=== PATIENT | male | born 1965 | race Caucasian/White ===

== ENCOUNTER 2018-09-23 08:56 | Day surgery (SDC) | payer BC ==
[~2018-09-23] VITALS: Ht 160 cm; Wt 67.1 kg
[~2018-09-23 08:56] MED LIST: ASPI325T25 PO; ATOR80TA59 PO; LR 1,000 ML IV SCH; METO50TA7 PO; NITR0.4S14; OMEP20CA3 PO; VITA500T PO
[2018-09-23] MEDS ORDERED: GLYCOPYRROLATE INJ 0.2 MG/ML 2 ML VIAL As Ordered ONE (10:11)
[2018-09-23] MEDS ORDERED: dexameTHASONE 4 MG/ML 1ML VIAL (J1100) As Ordered ONE (10:11)
[2018-09-23] MEDS ORDERED: ROCURONIUM BROMIDE 50 MG/5 ML VIAL As Ordered ONE (10:11)
[2018-09-23] MEDS ORDERED: MIDAZOLAM INJ 2 MG/2 ML VIAL (J2250) As Ordered ONE (10:11)
[2018-09-23] MEDS ORDERED: NEOSTIGMINE 10 MG/10 ML VIAL (J2710) As Ordered ONE (10:11)
[2018-09-23] MEDS ORDERED: LIDOCAINE 2% INJ 100 MG/5 ML SDV (FOR ANES.) As Ordered ONE (10:11)
[2018-09-23] MEDS ORDERED: fentaNYL 100 MCG/2 ML INJECTION (J3010) As Ordered ONE ×2 (10:11→12:05)
[2018-09-23] MEDS ORDERED: PROPOFOL 200 MG/20 ML VIAL As Ordered ONE (10:11)
[2018-09-23] MEDS ORDERED: ONDANSETRON 4MG/2ML VIAL (J2405) As Ordered ONE (10:11)
[2018-09-23] MEDS ORDERED: NORCOTAB PO (10:21)
[2018-09-23] MEDS ORDERED: BUPIVACAINE HCL 0.25% 30 ML VIAL As Ordered ONE (10:46)
[2018-09-23] MEDS ORDERED: BUPIVACAINE LIPOSOME/PF 1.3% 20ML VIAL (13.3MG/ML)(EXPAREL)(C9290 PER1MG) As Ordered ONE (12:23)
[2018-09-23] MEDS ORDERED: ONDANSETRON 4MG/2ML VIAL (J2405) IV PRN (14:15)
[2018-09-23] MEDS ORDERED: fentaNYL 100 MCG/2 ML INJECTION (J3010) IV PRN (14:15)
[2018-09-23] MEDS ORDERED: LR 1,000 ML IV SCH (14:15)
[2018-09-23] MEDS ORDERED: PERCOCET 5MG/325MG TAB PO PRN (14:15)
[2018-09-23] MEDS ORDERED: HYDROMORPHONE HCL 0.5 MG/ 0.5 ML SYRINGE (J1170 PER 1) IV PRN (14:15)
[2018-09-23] MEDS ORDERED: ACETAMINOPHEN TAB 650MG DOSE (2X325MG) PO PRN (14:30)
[2018-09-23] MEDS ORDERED: NORCO, ANEXSIA 5/325MG TABLET (HYDROcodone/ACETAMINOPHEN) PO PRN (14:30)
[2018-09-23 15:30] VITALS: BP 124/70
[2018-09-23 15:39] LABS: HEPATITIS B SURFACE ANTIGEN NEGATIVE (NEGATIVE)
[2018-09-23 15:59] LABS: HEP C VIRUS AB INDEX SOURCE PT 0.1 INDEX (0.0-0.8)
--- NOTE | 2018-09-24 10:58 | RO ---
DATE OF PROCEDURE: 09/23/2018 PREOPERATIVE DIAGNOSES: 1. Left inguinal hernia. 2. Right hip subcutaneous mass. POSTOPERATIVE DIAGNOSES: 1. Indirect left inguinal hernia. 2. Right subcutaneous mass of the hip, probable lipoma. PROCEDURES PERFORMED: 1. Left inguinal herniorrhaphy with Ultrapro mesh. 2. Excision of right hip subcutaneous mass 8 cm in diameter. SURGEON: Dr. Ludwig Crawford YARD DRIVER: ANESTHESIA: General. INDICATIONS FOR PROCEDURE: Patient is a 53-year-old man who had recently noted a lump in the left inguinal area. This followed shortly after having a cardiac catheterization, which led to a coronary artery bypass grafting. On physical exam, he was found to have a reducible incomplete left inguinal hernia. He also pointed out a subcutaneous mass on the right anterolateral hip area suggestive of a lipoma. He is now for left inguinal herniorrhaphy and excision of the mass. DESCRIPTION OF PROCEDURE: The patient was brought to the operating room and placed supine on the operating table. He was placed under general endotracheal anesthesia. The patient's lower abdomen, groins and genitalia and the right anterolateral hip area were all prepped and draped sterilely. Attention was first turned to the left inguinal hernia. An approximately 8 cm left lower quadrant oblique incision was made over the course of the inguinal canal. This was deepened through the subcutaneous tissues using the cautery. Hemostasis was ensured with the cautery. The external oblique was identified, and this was opened in the direction of its fibers into the external ring. The spermatic cord was found to be somewhat dilated. With dissection, a moderately large indirect inguinal hernia sac was identified. This was from the other cord structures and dissected up into the internal ring. The sac was opened and contained some omentum which was reduced into the abdomen. The sac was then twisted and suture ligated at its neck with a #0 Vicryl. The sac was excised and sent as a permanent specimen. The spermatic cord was then elevated at the pubic tubercle. Some of the cremaster fibers were divided. A 6 x 11 cm Ultrapro mesh was selected. This was reference code UMS3 and lot number [id number]. This was trimmed to fit the inguinal floor and split laterally to fit about the spermatic cord. This was sutured at the pubic tubercle with a #3-0 Prolene, which was then carried along the lateral border of the mesh suturing this to the shelving edge of the inguinal ligament. The medial portion of the mesh was tacked down to the underlying internal oblique muscle and fascia using interrupted simple sutures of #3-0 Vicryl. The tails of the mesh were overlapped lateral to the spermatic cord and sutured together to narrow the internal ring appropriately. This appeared to give a nice reinforcement of the inguinal floor. The external oblique aponeurosis was closed with a running suture of #0 Vicryl. A mixture of 20 mL of Exparel with 20 mL of 0.25% Marcaine was then prepared. Approximately 25 mL at this was infiltrated around the left inguinal hernia. The subcutaneous tissues were approximated with some buried #3-0 chromic, and the skin edges were approximated with a running subcuticular #4-0 Vicryl. Attention was then turned to the right hip mass. He had a protruding nodule of what appeared to fibrofatty tissue, about 2 cm in diameter, which connected to a somewhat serpiginous obliquely oriented subcutaneous mass extending superiorly and laterally. An oblique elliptical incision was made to incorporate the protruding mass and extending up along the course of the underlying subcutaneous mass. The tissues were opened with the cautery and with sharp dissection. A lobulated mass of fibrofatty tissue was identified. This was dissected free using a combination of dissection, but primarily with the cautery to ensure hemostasis. The skin superiorly was elevated with retractors, and the mass was dissected free from beneath the mass. This was removed and was 8 cm in maximum diameter. The lobulated tissue appeared to be intact. This was sent for permanent pathology. After ensuring adequate hemostasis, the skin edges were undermined slightly to allow better apposition. The remaining 15 mL of Exparel were infiltrated about the wound. The subcutaneous tissues were approximated with #3-0 Vicryl. The skin edges were approximated with a running subcuticular #4-0 Vicryl. Steri-Strips were applied to both incisions followed by sterile dressings. The patient tolerated the procedure well without apparent complication. He was awakened in the operating room, extubated and moved to the recovery room in stable condition.
== END 2018-09-23 15:30 | disposition home or self-care (01) ==
LOC: M SDC 08:56
PROVIDERS: ATTEND Surgery
DX: K40.90 Unilateral inguinal hernia, without obstruction or gangrene, not specified as recurrent (principal); D17.23 Benign lipomatous neoplasm of skin and subcutaneous tissue of right leg
CPT/HCPCS: 27043; 36415; 49505; 86803; 87340; 87389; 88302; 88307; C1781; C9290; J1100; J2250; J2405; J2710; J3010

== ENCOUNTER → 2022-10-11 | Outpatient (CLI) | payer OTHER ==
[~2022-10-11] MED LIST changes: +ASPI-255 PO; -ASPI325T25 PO; +BAYE81TA10 PO; +HYDR-3715 PO; -LR 1,000 ML IV SCH; +OMEP1CAP73 PO; -OMEP20CA3 PO; +REPA140I2 SC; +VITA-243 PO; -VITA500T PO
== END ==
LOC: M LABSMTC 11:56
PROVIDERS: ATTEND Anesthesiology
DX: Z01.818 Encounter for other preprocedural examination (principal); Z11.52 Encounter for screening for COVID-19

== ENCOUNTER 2022-10-16 09:18 | Day surgery (SDC) | payer OTHER ==
[~2022-10-16] VITALS: Ht 160 cm; Wt 62.1 kg
[~2022-10-16 09:18] MED LIST changes: +ceFAZolin SOD 2 GM in IV 1 EA IV ONE
[2022-10-16] MEDS ORDERED: LR 1,000 ML IV SCH ×2 (09:55→13:30)
[2022-10-16] MEDS ORDERED: propofoL 200 MG/20 ML VIAL As Ordered ONE (10:49)
[2022-10-16] MEDS ORDERED: ROCURONIUM BROMIDE 50MG/5ML VIAL As Ordered ONE (10:49)
[2022-10-16] MEDS ORDERED: MIDAZOLAM INJ 2MG/2ML VIAL As Ordered ONE (10:49)
[2022-10-16] MEDS ORDERED: fentaNYL 100 MCG/2 ML INJECTION As Ordered ONE ×2 (10:49→12:50)
[2022-10-16] MEDS ORDERED: ONDANSETRON 4MG 2ML VIAL As Ordered ONE (10:49)
[2022-10-16] MEDS ORDERED: LIDOCAINE 2% 100MG/5ML SDV (FOR ANES.) As Ordered ONE (10:49)
[2022-10-16] MEDS ORDERED: BUPIVACAINE/EPIN 0.25% 30ML VIAL As Ordered ONE (11:31)
[2022-10-16] MEDS ORDERED: ACETAMINOPHEN 1000MG 100ML IV BAG As Ordered ONE (12:44)
[2022-10-16] MEDS ORDERED: SUGAMMADEX SODIUM 500 MG/5 ML VIAL (BRIDION) As Ordered ONE (12:49)
[2022-10-16] MEDS ORDERED: KETOROLAC 60MG 2ML VIAL As Ordered ONE (12:49)
[2022-10-16] MEDS ORDERED: LABETALOL 100MG/20ML VIAL As Ordered ONE (12:57)
[2022-10-16] MEDS ORDERED: hydrALAZINE 20MG/ML 1ML VIAL As Ordered ONE (13:10)
[2022-10-16] MEDS ORDERED: oxyCODONE 5MG TAB PO PRN (13:30)
[2022-10-16] MEDS ORDERED: ONDANSETRON 4MG 2ML VIAL IV PRN (13:30)
[2022-10-16] MEDS ORDERED: fentaNYL 100 MCG/2 ML INJECTION IV PRN (13:30)
[2022-10-16] MEDS ORDERED: NORCO, ANEXSIA 5/325MG TABLET (HYDROcodone/ACETAMINOPHEN) PO PRN (14:25)
[2022-10-16 14:55] VITALS: BP 135/78
== END 2022-10-16 15:45 | disposition home or self-care (01) ==
LOC: M SDC 09:18
PROVIDERS: ATTEND Surgery
DX: K40.90 Unilateral inguinal hernia, without obstruction or gangrene, not specified as recurrent (principal); I25.10 Atherosclerotic heart disease of native coronary artery without angina pectoris; I10 Essential (primary) hypertension; E78.5 Hyperlipidemia, unspecified; K21.9 Gastro-esophageal reflux disease without esophagitis; Z79.899 Other long term (current) drug therapy; Z79.82 Long term (current) use of aspirin; Z95.1 Presence of aortocoronary bypass graft; Z87.891 Personal history of nicotine dependence
CPT/HCPCS: 49650; C1781; J0131; J0360; J0690; J1100; J1885; J2250; J2405; J3010; S0020